=== PATIENT | female | born 1975 | race Caucasian/White ===

== ENCOUNTER 2021-05-14 19:40 | Emergency (ER) | payer OTHER, SELFPAY ==
--- NOTE | ~2021-05-14 | CT_ITS ---
EXAMINATION: CT cervical spine wo con DATE: 05/14/2021 20:39 INDICATION: Neck pain following fall TECHNIQUE: Computed tomography (CT) of the cervical spine was performed without intravenous contrast. Automated exposure control and iterative reconstruction technique were employed. Exam dose: 415.84 mGy-cm total exam DLP. COMPARISON: None FINDINGS: There is straightening of the cervical spine which may be due to positioning and/or muscle spasm. C1 and C2 are normally aligned and the odontoid process is intact. No fracture or dislocation or locked facet or prevertebral soft tissue swelling. There is mild to moderate degenerative disease in the mid and lower cervical spine, most prominent at C5-6, with prominent anterior spurring. There is uncovertebral joint spurring in the mid and lower c ervical spine.. Approximately 1 cm lesion of the right lobe of the thyroid gland. IMPRESSION: Straightening of the cervical spine which may be due to muscle spasm and/or positioning No fracture or dislocation or locked facet Degenerative changes Reviewed, dictated and finalized at [facility]. Reviewed, dictated and finalized at [facility]. IMPRESSION: Straightening of the cervical spine which may be due to muscle spa sm and/or positioning No fracture or dislocation or locked facet Degenerative changes
--- NOTE | ~2021-05-14 | XR_ITS ---
XR shoulder RT min 2V DATE: 05/14/2021 20:37 INDICATION: Fall. Right shoulder injury, pain TECHNIQUE: 4 views COMPARISON: None FINDINGS: No fracture or dislocation, periosteal reaction or bone destruction or abnormal soft tissue calcification of right shoulder IMPRESSION: Negative Reviewed, dictated and finalized at [facility]. IMPRESSION: Negative
--- NOTE | ~2021-05-14 | XR_ITS ---
XR wrist RT min 3V DATE: 05/14/2021 20:37 INDICATION: Right wrist pain following injury from fall TECHNIQUE: 4 views COMPARISON: None FINDINGS: No fracture or dislocation, periosteal reaction or bone destruction. Joint spaces are prese rved. No erosive change or chondrocalcinosis. IMPRESSION: Negative Reviewed, dictated and finalized at [facility]. IMPRESSION: Negative
--- NOTE | ~2021-05-14 | XR_ITS ---
XR elbow RT min 3V DATE: 05/14/2021 20:37 INDICATION: Right elbow pain TECHNIQUE: 4 views COMPARISON: None FINDINGS: No fracture or dislocation or joint effusion. No periosteal reaction or bone destruction. IMPRESSION: Negative Reviewed, dictated and finalized at [facility]. IMPRESSION: Negative
[2021-05-14 19:46] VITALS: BP 124/83; PULSE 78; RESP 16; TEMP 36.9; O2SAT 100
--- NOTE | 2021-05-14 21:08 | ED.GENADULT ---
HPI - General Adult General Chief complaint: Extremity Injury, Upper Stated complaint: fall- arm injury Time Seen by Provider: 05/14/21 20:09 Source: patient History of Present Illness HPI narrative: 45-year-old female presented to the emergency department for evaluation after having a ground-level fall. Patient was walking her dog when the dog saw a bird and charged. This caused the patient to fall forward injuring her right wrist and arm. Patient is complaining of shoulder pain right arm pain and neck pain. Patient denies any loss of consciousness. Related Data Home Medications Medication Instructions Recorded Confirmed levothyroxine [Synthroid] 05/14/21 Allergies Allergy/AdvReac Type Severity Reaction Status Date / Time doxycycline Allergy Redness of Verified 05/14/21 19:50 Skin morphine AdvReac Unknown HYPOTENTION Verified 05/14/21 19:50 AND BRADYCARDIA PROMETHAZINE HCL AdvReac Unknown HALLUCINATI Uncoded 05/14/21 19:50 ONS Review of Systems Review of Systems: CONSTITUTIONAL: Denies fever, chills, or sweats. EYES: Denies visual changes, redness, or discharge. ENT: Denies rhinorrhea, congestion, sore throat, or otalgia. CARDIOVASCULAR: Denies chest pain, palpitations, or edema. RESPIRATORY: Denies cough or dyspnea. GASTROINTESTINAL: Denies abdominal pain, nausea, vomiting, or diarrhea. GENITOURINARY: Denies dysuria or hematuria. SKIN: Denies rash or itching. MUSCULOSKELETAL: right arm pain NEUROLOGIC: Denies headache, numbness, or weakness. PSYCHIATRIC: Denies anxiety or depression. All systems reviewed & are unremarkable except as noted in HPI and below Exam Narrative: APPEARANCE: Well appearing, no pain, no distress, well-nourished. HEAD: normocephalic, atraumatic. EYES: PERRLA/EOMI, conjunctivae clear. NOSE: Normal no drainage EARS:TMS clear with good light reflex. THROAT: Pharynx clear, no exudate. NECK: Supple. No adenopathy, no masses. RESPIRATORY: Airway patent, respirations nonlabored. Clear to auscultation bilaterally, no rales, rhonchi, wheezing. CARDIOVASCULAR: Regular rate and rhythm without murmurs rubs or gallops. ABDOMINAL: Soft, nontender, nondistended, normal bowel sounds MUSCULOSKELETAL: Right elbow and wrist tenderness. NEURO: Alert. Cranial nerves II through XII intact. Good gait. Good coordination SKIN: Warm, dry. Normal Color PSYCHIATRIC: Normal affect/mood. Course Course Emergency Course: X-ray showed no acute fractures or dislocations. Patient was obtained the results of her imaging. Patient was encouraged to have close follow-up with her primary care physician. Vital Signs Vital signs: Vital Signs Temperature 98.4 F 05/14/21 19:46 Pulse Rate 78 05/14/21 19:46 Respiratory Rate 16 05/14/21 19:46 Blood Pressure 124/83 05/14/21 19:46 Pulse Oximetry 100 05/14/21 19:46 Temperature 98.4 F 05/14/21 19:46 Pulse Rate 61 05/14/21 21:21 Respiratory Rate 15 05/14/21 21:21 Blood Pressure 118/71 05/14/21 21:21 Pulse Oximetry 100 05/14/21 21:21 Medical Decision Making Vital Signs Vital Signs: Vital Signs Temperature 98.4 F 05/14/21 19:46 Pulse Rate 78 05/14/21 19:46 Respiratory Rate 16 05/14/21 19:46 Blood Pressure 124/83 05/14/21 19:46 Pulse Oximetry 100 05/14/21 19:46 Temperature 98.4 F 05/14/21 19:46 Pulse Rate 61 05/14/21 21:21 Respiratory Rate 15 05/14/21 21:21 Blood Pressure 118/71 05/14/21 21:21 Pulse Oximetry 100 05/14/21 21:21 Imaging Data Radiologist's impression: Impressions Shoulder X-Ray 05/14/21 20:47 IMPRESSION: Negative Elbow X-Ray 05/14/21 20:48 IMPRESSION: Negative Wrist X-Ray 05/14/21 20:48 IMPRESSION: Negative Cervical Spine CT 05/14/21 20:50 IMPRESSION: Straightening of the cervical spine which may be due to muscle spasm and/or positioning No fracture or dislocation or locked facet Degenerative changes Disc
[2021-05-14 21:21] VITALS: BP 118/71; PULSE 61; RESP 15; O2SAT 100
== END 2021-05-14 21:22 | disposition home or self-care (01) ==
PROVIDERS: Emergency Provider Emergency Medicine
DX: S40.021A Contusion of right upper arm, initial encounter (principal); S19.9XXA Unspecified injury of neck, initial encounter; S49.91XA Unspecified injury of right shoulder and upper arm, initial encounter; W18.39XA Other fall on same level, initial encounter; Y93.K1 Activity, walking an animal
CPT/HCPCS: 72125; 73030; 73080; 73110; 99284

== ENCOUNTER 2021-05-23 06:36 | Outpatient (CLI) | payer OTHER, SELFPAY ==
--- NOTE | ~2021-05-23 | MR_ITS ---
EXAMINATION: MR shoulder RT wo con DATE: 05/23/2021 07:44 INDICATION: Acute onset right shoulder pain TECHNIQUE: Magnetic resonance imaging (MRI) of the right shoulder was performed without intravenous c ontrast. Sequences included axial PD-weighted FS FSE, coronal oblique PD-weighted FS FSE, coronal obl ique T2-weighted FS FSE, sagittal PD-weighted FS FSE, and sagittal T1-weighted SE. COMPARISON: None. FINDINGS: Coracoacromial arch: The acromion undersurface is curved in morphology (type II). The coracoacromial ligament is normal. A cromioclavicular joint is normal. Rotator cuff: Mild supraspinatus tendinopathy without discrete tear. The infraspinatus, teres minor and subscapular is tendons are normal. There is feathery supraspinatus and infraspinatus muscular edema centered richard g the myotendinous junctions which given the history of trauma is suspicious for low-grade muscle str ain. Biceps tendon, glenoid labrum and glenohumeral cartilage: Long head of the biceps tendon is normal. Glenoid labrum is normal. Glenohumeral cartilage is normal. Fluid: Physiologic amount of fluid in the glenohumeral joint and biceps tendon sheath. No loose osteochondr al bodies. There is additional mild feathery muscular edema also seen along the myotendinous junction in the anterior deltoid also suspicious for low-grade strain. Bones: Normal marrow signal with no edema, fracture or pathologic marrow replacing process. IMPRESSION: 1. Feathery muscular edema in the supraspinatus, infraspinatus and to lesser degree anterior deltoid muscles which is centered along the myotendinous junctions which given the history of trauma would be most consistent with low-grade muscle strains. Differential would include other: Incidental nonspeci fic myositis which there is a wide differential. 2. Mild supraspinatus tendinopathy without discrete tear. Reviewed, dictated and finalized at [facility]. IMPRESSION: 1. Feathery muscular edema in the supraspinatus, infraspinatus and to lesser de gree anterior deltoid muscles which is centered along the myotendinous junction s which given the history of trauma would be most consistent with low-grade mus anastasiya strains. Differential would include other: Incidental nonspecific myositis which there is a wide differential. 2. Mild supraspinatus tendinopathy without discrete tear.
== END 2021-05-23 06:37 | disposition home or self-care (01) ==
LOC: ANHIMG 06:40
PROVIDERS: PCP Family Medicine; Visit Provider Family Medicine
DX: M25.511 Pain in right shoulder (principal); R60.0 Localized edema
CPT/HCPCS: 73221

== ENCOUNTER 2022-10-28 19:17 | Emergency (ER) | payer OTHER, SELFPAY ==
--- NOTE | ~2022-10-28 | XR_ITS ---
EXAM: XR heel RT min 2V DATE: 10/28/2022 19:38 HISTORY: heel pain, no injury . COMPARISON: None available. FINDINGS: Normal mineralization. No fracture or dislocation. No lytic or blastic lesion. Joint space s are maintained. Plantar enthesopathy No erosion or periosteal change. Soft tissues within normal li mits. IMPRESSION: No acute osseous finding in the right heel. Reviewed, dictated and finalized at [facility].
[2022-10-28 19:27] VITALS: BP 115/81; PULSE 78; RESP 16; TEMP 37.1; O2SAT 100
--- NOTE | 2022-10-28 19:27 | ED.LOWEXIN ---
HPI - Extremity Injury (Lower) General Chief Complaint: Extremity Injury, Lower Stated Complaint: Stress fracture on right heel Time Seen by Provider: 10/28/22 19:27 Source: patient Mode of arrival: ambulatory Limitations: no limitations History of Present Illness HPI Narrative: Patient is a 47-year-old female that presents with right heel pain for 2 weeks. Patient states hurts worse when she is running, was unable to even run 4 blocks due to pain today. Patient states she has had plantar fasciitis in the past and it does not feel like this. Patient has been taking Tylenol with no relief. Patient has been stretching, taping and wearing tennis shoes with no relief of symptoms. Patient had injections and foot to treat plantar fasciitis about a month ago. Related Data Home Medications Medication Instructions Recorded Confirmed levothyroxine 25 mcg tablet 05/14/21 (Synthroid) Allergies Allergy/AdvReac Type Severity Reaction Status Date / Time cephalexin [From Keflex] Allergy Severe Rash Verified 02/12/22 15:43 doxycycline Allergy Redness of Verified 02/12/22 15:43 Skin morphine AdvReac Unknown HYPOTENTION Verified 02/12/22 15:43 AND BRADYCARDIA finegrin Allergy Severe Hallucinati Uncoded 02/12/22 15:43 ng Review of Systems Review of Systems: All systems reviewed & are unremarkable except as noted in HPI and below Constitutional: Constitutional: Denies body ache(s), Denies chills, Denies fatigue, Denies fever(s), Denies headache(s), Denies malaise and Denies weakness Eyes: Eyes: Denies blurry vision, Denies irritation and Denies loss of vision ENT: Denies otalgia, Denies headache(s), Denies nasal discharge, Denies sinus pain and Denies sore throat Cardiovascular: Cardiovascular: Denies chest pain, Denies irregular heart rhythm and Denies dyspnea Respiratory: Respiratory: Denies dyspnea Gastrointestinal: Gastrointestinal: Denies abdominal pain, Denies melena, Denies hematochezia, Denies diarrhea, Denies nausea and Denies vomiting Musculoskeletal: Musculoskeletal: Denies back pain, Denies myalgias and Reports arthralgias Integumentary/Breasts: Skin/Breast: Denies pruritus and Denies rash Neurologic: Denies headache(s), Denies loss of vision and Denies weakness Psychiatric: Psychiatric: Reports no additional psychiatric complaints Endocrine: Endocrine: Denies fatigue PMFSH Past Medical History Medical History delivery delivered Endometriosis Hypothyroid Screening mammogram for breast cancer Surgical History Surgical History H/O removal of cyst Hx of tonsillectomy Family History Family History Other High cholesterol History of cancer Hypertension Hypothyroid Social History Social History Smoking status: Never smoker Alcohol intake: current Alcohol use details: socially Substance use: never Living arrangements: with family Occupation/Education: occupation Additional occupation/education comments: [employer] Gender identity (if verbalized by the patient): Female Sexual Orientation (if Verbalized by the Patient): Straight or Heterosexual Comments At time of signature, agree with nursing past medical, surgical, social and family history. There is no relevant family history pertinent to the presenting complaint. Exam Const: General: cooperative, healthy appearing, comfortable, no acute distress and well nourished Nutritional Appearance: well nourished Orientation/consciousness: patient oriented x3 Limitations: no limitations HENMT: Head: normal to inspection, normocephalic and atraumatic Ears: hearing grossly normal bilaterally and external ears normal Face/Nose/Sinus: Normal external nose present, normal fa
== END 2022-10-28 20:00 | disposition home or self-care (01) ==
PROVIDERS: Emergency Provider Nurse Practitioner Family; PCP Family Medicine
DX: M76.61 Achilles tendinitis, right leg (principal); N80.9 Endometriosis, unspecified; E09.9 Drug or chemical induced diabetes mellitus without complications
CPT/HCPCS: 73650; 99213; G0463

== ENCOUNTER 2023-05-28 15:35 | Outpatient (CLI) | payer OTHER, SELFPAY ==
--- NOTE | ~2023-05-28 | MR_ITS ---
EXAMINATION: MR lumbar spine wo con DATE: 05/28/2023 15:59 INDICATION: Low back pain. TECHNIQUE: Magnetic resonance imaging (MRI) of the lumbar spine was performed without intravenous con trast. Sequences included sagittal T2-weighted FSE, sagittal T2-weighted FS FSE, sagittal T1-weighted FSE, and axial T2-weighted FSE. COMPARISON: None FINDINGS: Bone alignment is normal. There is mild chronic anterior wedging of T11 and T12 vertebral b odies. There are Schmorl's nodes at multiple levels. There is mildly decreased disc height at L3-L4. The distal spinal cord signal intensity is normal. The conus medullaris is at L1. The following disc levels are specifically discussed: L1-L2: The disc does not extend beyond the endplate margin. There is mild bilateral facet joint osteo arthritis. There is no neural foraminal stenosis. There is no central canal stenosis. L2-L3: The disc does not extend beyond the endplate margin. There is mild bilateral facet joint osteo arthritis. There is no neural foraminal stenosis. There is no central canal stenosis. L3-L4: The disc is bulging and has an annular fissure. There is mild bilateral facet joint osteoarthr itis. There is mild bilateral neural foraminal stenosis. There is mild central canal stenosis. L4-L5: The disc is bulging and has an annular fissure. There is mild right and moderate left facet valerio int osteoarthritis. There is mild bilateral neural foraminal stenosis. There is mild central canal st enosis. L5-S1: The disc does not extend beyond the endplate margin. There is severe right and moderate left f acet joint osteoarthritis. There is mild right neural foraminal stenosis. There is no central canal s tenosis. IMPRESSION: 1. Mild lumbar spondylosis. Reviewed, dictated and finalized at [facility]. IMPRESSION: 1. Mild lumbar spondylosis.
== END 2023-05-28 15:36 ==
LOC: MICIMG 15:36
PROVIDERS: PCP Family Medicine; Visit Provider Family Medicine
DX: M54.50 Low back pain, unspecified (principal); G89.29 Other chronic pain; M54.16 Radiculopathy, lumbar region; M43.06 Spondylolysis, lumbar region
CPT/HCPCS: 72148